=== PATIENT | male | born 2005 | race Asian ===

== ENCOUNTER 2025-01-11 09:32 | Emergency (ER) | payer OTHER ==
[~2025-01-11] VITALS: Ht 177.8 cm; Wt 60.8 kg
[2025-01-11 09:43] VITALS: TEMP 98.2
[2025-01-11] MEDS ORDERED: IOHEXOL-350 100 ML VIAL IV ONE (10:15)
[2025-01-11 10:29] LABS: PLATELET COUNT (AUTO) 465 K/uL (150-450); RED BLOOD CELL COUNT(AUTO) 4.89 MIL/uL (4.5-6.0); RED CELL DISTRIBUTION WIDTH 12.7 % (11.5-15.0); WHITE BLOOD COUNT (AUTO) 14.4 K/uL (4.3-11.0)
[2025-01-11 10:42] LABS: CALCIUM, SERUM 9.5 mg/dL (8.5-10.1); CREATININE 1.0 mg/dL (0.6-1.3); SODIUM SERUM 136.0 mmol/L (136-145); UREA NITROGEN, BLOOD 12.0 mg/dL (7-18)
[2025-01-11] MEDS: TETRACAINE/BENZOCAINE/BUTAMBEN 56 GM SPRAY TP ONE (12:24)
[2025-01-11] MEDS: LIDOCAINE VISCOUS 2% UD 15 ML UDC MM ONE (12:24)
[2025-01-11] MEDS ORDERED: CLIN300C12 PO (12:27)
[2025-01-11] MEDS ORDERED: KETO10TA2 PO (12:27)
[2025-01-11] MEDS: CLINDAMYCIN 900 MG in IV D5W 50 ML IV ONE (12:30)
[2025-01-11] MEDS ORDERED: CLINDAMYCIN PHOSPHATE IV 600 MG/4 ML VIAL IV ONE (12:30)
[2025-01-11] MEDS: CLINDAMYCIN 900 MG in IV D5W 100 ML IV ONE (12:31)
[2025-01-11] MEDS: dexaMETHasone SOD PHOSPHATE 10 MG/ML VIAL IV ONE (12:39)
[2025-01-11 13:39] VITALS: BP 120/74; O2SAT 99
== END 2025-01-11 13:38 | disposition home or self-care (01) ==
LOC: ER 09:48
DX: J36 Peritonsillar abscess (principal); H92.02 Otalgia, left ear
CPT/HCPCS: 99285; 96365; 70491; 96375; 85025; 80048; 36415; J3490; J1100; J7060; A6403; Q9967